=== PATIENT | female | born 1995 | race Caucasian/White ===

== ENCOUNTER 2023-06-10 09:35 | Inpatient (IN) | payer MEDICAID, SELFPAY ==
--- NOTE | 2023-06-02 17:07 | HP.PCM_ITS ---
History and Physical Date of Admission: 06/10/23 HPI: The patient is a 27 year old female presenting for pre-operative visit. She is scheduled for , for LGA, EFW near 5000 gm at [facility] on 06/08/22. Procedure discussed along with risks, benefits and complications. Other alternatives discussed for management. Consent form signed? Yes. ? ? PAST MEDICAL HISTORY No past medical history on file. ? ? PAST SURGICAL HISTORY No past surgical history on file. ? ? CURRENT MEDICATIONS No current outpatient medications on file. ? No current facility-administered medications for this visit. ? ? ALLERGIES: Patient has no known allergies. ? PERSONAL HISTORY: SOCIAL HISTORY Social History ? Tobacco Use ? Smoking status: Never ? Smokeless tobacco: Never Vaping Use ? Vaping Use: Never used Substance Use Topics ? Alcohol use: Not Currently ? Drug use: Never ? FAMILY HISTORY: FAMILY HISTORY FAMILY HISTORY Problem Relation Age of Onset ? No Known Problems Mother ? ? No Known Problems Father ? ? No Known Problems Sister ? ? No Known Problems Sister ? ? No Known Problems Maternal Grandmother ? ? No Known Problems Maternal Grandfather ? ? No Known Problems Paternal Grandmother ? ? No Known Problems Paternal Grandfather ? ? ? REVIEW OF SYMPTOMS: GENERAL: denies fevers or chills ENDOCRINOLOGY: has not been on steroids Cardiology : denies palpitations or chest pain Respiratory: denies SOB or cough Hematology: denies history of prolonged bleeding or easy bruising or VTE Allergy: Denies history of personal or family history of allergy to anesthesia ? PHYSICAL EXAMINATION: ? VITALS: Blood pressure 110/70, weight 173 lb 3.2 oz (78.6 kg), last menstrual period 09/05/2022. ? GENERAL: The patient is well nourished, well hydrated in no acute distress. , The patient is oriented to time, place, and person. NECK: Supple. No lynphadenopathy, normal thyroid, no thyromegaly. LUNGS: Clear to auscultation bilaterally. no wheezes, rhonchi or rales HEART: Regular rate and rhythm, Normal heart sounds, and No murmurs or gallops abd- soft, [id number], gravid ? IMPRESSION: Estimated Date of Delivery: 06/12/23 G1 w/ EFW approx 5000 gm ? PLAN: The risks/benefits/alternatives and personal involved for the planned c- section were reviewed with the patient. Her questions were answered to her satisfaction and she desires to proceed. Consent was signed. I reviewed with her postop instructions and expectations. ? ? I have reviewed and updated past medical and surgical history, medications and allergies
[2023-06-10] VITALS (16 sets, daily range): BP systolic 107–128; BP diastolic 61–103; PULSE 76–98; RESP 16–18; TEMP 36.2–37.1; O2SAT 16–99; BMI 29.0
[2023-06-10] MEDS: Lactated Ringers 1,000 ML 999 ML IV (10:05)
[2023-06-10 10:28] LABS: Absolute Lymphocyte Count 1.63 X10^3/uL (0.83-4.51); Absolute Neutrophil Count 6.9 X10^3/uL (2.0-7.7); Basophil# 0.02 X10^3/uL; Basophil% 0.2 % (0-1); Eosinophil# 0.07 X10^3/uL; Eosinophils% 0.7 % (0-5); Hematocrit 37.3 % (37-47); Hemoglobin 12.7 g/dL (12.0-15.0); Lymphocyte # 1.63 X10^3/ul (0.83-4.51); Mean Corpuscular Hgb 30.7 pg (27.0-32.0); Mean Corpuscular Volume 90.1 fL (81-99); Mean Platelet Vol. 9.5 fl (6.2-12.0); Monocyte% 9.4 % (0-10); NRBC Flagged by Analyzer 0 % (0-5); Neutrophil # 6.92 X10^3/uL (2.7-7.7); Neutrophil % 72.3 % (47-70); Platelet Count 239 K/mm3 (150-450); RBC Distribution Width CV 11.8 % (11.6-14.6); RBC Distribution Width SD 38.2 fl (35.1-43.9); Red Blood Count 4.14 M/mm3 (4.2-5.4); White Blood Count 9.6 K/mm3 (4.4-11.0)
[2023-06-10] MEDS: Acetaminophen 500 MG Tablet 1000 MG PO ×3 (10:59→23:50)
[2023-06-10] MEDS: Lactated Ringers 1,000 ML 150 ML IV (11:00)
[2023-06-10 11:20] LABS: HIV - WCH Non-Reactive (Nonreactive); Syphilis Antibodies Non-reactive
[2023-06-10] MEDS: Sodium Citrate/Citric Acid 30 ML UDC PO (11:53)
[2023-06-10] MEDS: Cefazolin 2 GM in 0.9% Normal Saline (100mL Bag) 100 ML IV (11:56)
--- NOTE | 2023-06-10 12:49 | EX.PCM.OBRPT ---
Assessment & Plan (1) 39 weeks gestation of : (2) LGA (large for gestational age) fetus affecting mother, antepartum: Maternal Data Information Final [facility]: 06/12/23 Gestational age: 39 5/7 Details Operative Information Date of Procedure: 06/10/23 Pre-Operative Diagnosis: LGA, high head at term, unfavorable cervix, 39 weeks Post-Operative Diagnosis: same Classification: Scheduled Procedure Type: low transverse restaurant area director #1: Sam Goddard Type of Anesthesia: Spinal Anesthesiologist: Cherelle Pompa Special Medications: duramorph Antibiotic Given: Ancef 2 grams IV x1 Drain: Mendoza to straight drain Estimated Blood Loss: 800 Fluids Replaced: 1100 Procedure Start Time: 12:18 Procedure Stop Time: 12:50 Time of Delivery: : Findings Description of Procedure: The patient was taken to the operating room. She was prepped and draped in the dorsal supine position with a leftward tilt. A Pfannenstiel skin incision was made approximately 2 cm above the symphysis pubis and carried through to underlying layer fascia with the scalpel. The fascia was incised incised in the midline and extended laterally with the Bourgeois scissors. The fascia was dissected off the rectus muscles with blunt and sharp dissection. The rectus muscles were in the midline and the peritoneum was entered bluntly. The peritoneal incision was stretched and the bladder blade was placed. The uterine incision was made in a low transverse fashion with the scalpel and extended superiorly and inferiorly with blunt dissection. The amniotic membranes were ruptured bluntly and clear amniotic fluid returned. The infant's head was brought to the incision in the flexed position and was not able to easily be delivered. The incision was extended laterally with the bandage scissors and the rectus muscles on the left were cut slightly. The vacuum was placed on the flexion point and the vacuum created 550 mmHg. I pulled with 1 pull with gentle traction and fundal massage and the head delivered without difficulty. The vacuum was removed and there were no pop offs. The remainder of the was delivered with gentle traction and fundal pressure in the standard fashion. The mouth and nares were bulb suctioned. The cord was clamped and cut as the infant was stimulated. Cord clamping was delayed. The was handed off to the waiting nursing staff. The placenta was delivered with fundal massage and gentle traction in the standard fashion. The uterus was exteriorized and cleared of all clots and debris. The cervix was dilated with a ring forcep. The uterine incision was closed with #1 Vicryl in a running locked fashion. A second layer of the same suture was used in an imbricating fashion to obtain hemostasis. The incision was examined and was found to be hemostatic. Some hemoblast was placed over the incision. The uterus was placed back into the peritoneal cavity and hemostasis was again confirmed. The rectus muscles were examined and any bleeding was Bovie cauterized. The parietal peritoneum and rectus muscles were closed en bloc with an 0 Vicryl running suture. Some Rafael was placed over the rectus muscles. The rectus fascia was examined and any bleeding was Bovie cauterized and the rectus fascia was closed with 1 Vicryl suture in a running standard fashion. The subcutaneous tissue was examining and any bleeding was Bovie cauterized. The subcutaneous tissue was reapproximated with 3-0 Vicryl suture. The skin was closed in a subcuticular fashion by the AMMONIUM NITRATE CRYSTALLIZER with me present in the labor and delivery suite. I performed the remainder of the procedure with assistance. All sponge, lap, and needle counts were correct. The patient was taken to her room for recovery in a stable condition. Presentation: Positive for Vertex Amniotic Membrane Rupture Type: Artificial Amniotic Fluid Description: Clear Placental Delivery Description: Expressed Placenta Disposition: [facility] Cord Vessel Description: 3 Vessels Cord Entanglement: None Infant A Gender: Male (LAVONNE 4085 gm) (1 minute): 9 (5 minute): 9 Complications Complications: none
[2023-06-10] MEDS: Oxytocin 15 Units/NS 250ml 15 UNITS/250 ML IV.SOLN 83 UNITS IV (13:10)
[2023-06-10] MEDS: Ketorolac 30 MG/ML Syringe IV ×2 (13:40→19:44)
--- NOTE | 2023-06-10 15:08 | CASEMGMT ---
Labor and Delivery Unit Social Work Sw consult received to provide resources for parents. Sw presented to bedside and introduced self to mother and father of baby using iPad Ukranian lining cementer. - Sw completed psychosocial assessment and assessed for any needs or concerns that parents may have. - Sw asked parents if they wanted to get connected to [facility], parents denied, but sw pointed out WIC contact information for them to utilize if they change their mind. - Parents have obtained all necessary supplies for baby, report to have some supports in place should they need anything. - Sw also provided list of [facility] resources for parents to reference if a need should present itself, parents expressed understanding. No immediate needs or concerns at this time, MOB and baby to be discharged when medically ready. Formal psychosocial assessment to be completed. Radha Montes, TRANSFER DRIVER, HOUSEHOLD APPLIANCE MECHANIC
[2023-06-10] MEDS: Lactated Ringers 1,000 ML 100 ML IV (16:25)
[2023-06-11 01:30] VITALS: BP 105/54; PULSE 80; RESP 16; TEMP 36.6; O2SAT 98
[2023-06-11] MEDS: Ketorolac 30 MG/ML Syringe IV ×2 (01:35→07:59)
[2023-06-11 04:25] VITALS: BP 98/52; PULSE 83; RESP 16; TEMP 36.5; O2SAT 98
[2023-06-11 04:56] LABS: Hematocrit 30.6 % (37-47); Hemoglobin 10.2 g/dL (12.0-15.0); Mean Corp Hgb Conc 33.3 g/dL (32-36); Mean Corpuscular Hgb 30.7 pg (27.0-32.0); Mean Corpuscular Volume 92.2 fL (81-99); Mean Platelet Vol. 9.2 fl (6.2-12.0); Platelet Count 202 K/mm3 (150-450); RBC Distribution Width CV 11.9 % (11.6-14.6); Red Blood Count 3.32 M/mm3 (4.2-5.4); White Blood Count 13.3 K/mm3 (4.4-11.0)
[2023-06-11] MEDS: Acetaminophen 500 MG Tablet 1000 MG PO ×2 (06:02→12:04)
[2023-06-11] MEDS: 0.9% Saline Lock 10 ML Syringe IV (07:59)
[2023-06-11 08:05] VITALS: BP 96/63; PULSE 68; RESP 16; TEMP 37.1; O2SAT 100
--- NOTE | 2023-06-11 11:23 | PCM.PN.OB ---
Subjective Subjective denies complaints Objective Data Objective Data Vital Signs: Vital Signs Temp Pulse Resp BP Pulse Ox O2 Del Method 98.7 F 68 16 96/63 100 Room Air 06/11/23 08:05 06/11/23 08:05 06/11/23 08:05 06/11/23 08:05 06/11/23 08:05 06/11/23 08:05 Oxygen Delivery Method Room Air Weight: 174 lb 4 oz Body Mass Index (BMI) 29.0 Intake & Output: Intake and Output for Last 24 Hours 06/09/23 06/10/23 06/11/23 23:59 23:59 23:59 Intake Total 1762.5 / 1762.5 933.33 / 933.33 Output Total 1800 / 1800 400 / 400 Balance -37.5 / -37.5 533.33 / 533.33 Lab / Micro Data 06/11/23 04:40 Labs: Laboratory Results - last 24 hr 06/10/23 10:10: Blood Type A POSITIVE, Antibody Screen NEGATIVE 06/11/23 04:40: WBC 13.3 H, RBC 3.32 L, Hgb 10.2 L, Hct 30.6 L, MCV 92.2, MCH 30.7, MCHC 33.3, RDW Std Deviation 40.0, RDW Coeff of Staci 11.9, Plt Count 202, MPV 9.2 Physical Exam Const alert, oriented x3 and no apparent distress HEENT normocephalic GI soft to palpation, non-tender and non-distended GI Narrative: fundus firm, mid & below umbilicus Incision - bandage c/d/i Extremity normal to inspection and no calf tenderness Assessment & Plan (1) care following delivery: COMMENT: POD#1 PLAN: Plan Heme - HDS, CBC reviewed ID - AF, no signs infection GI/ - no issues Possible d/c home later today per patient request
--- NOTE | 2023-06-11 11:24 | PCM.DC.SUM ---
Providers Date of Admission: 06/10/23 Primary Care Physician: No Primary Care Phys Reason For Visit: PRIMARY Diagnosis Discharge Diagnosis (1) care following delivery: Status: Acute Code(s): Z39.2 - Encounter for routine follow-up Plan Heme - HDS, CBC reviewed ID - AF, no signs infection GI/ - no issues Possible d/c home later today per patient request Medications at Discharge Home Medications vit no.95-ferrous fumarate 28 mg-folic acid 800 mcg tablet () 1 tab PO DAILY 06/10/23 acetaminophen 500 mg tablet 1,000 mg (2 x 500 mg) PO Q6H #0 tabs 06/11/23 ibuprofen 600 mg tablet 600 mg PO Q6H #0 tabs 06/11/23 oxycodone 5 mg tablet 5 mg PO Q8 PRN Abdominal Pain 7 days #21 tabs 06/11/23 Hospital Course Operations section Summary of Care Provided Minutes Spent on Discharge: 15 Weight / BMI Weight Weight: 174 lb 4 oz Body Mass Index (BMI) 29.0 ABG / Lab / Microbiology Data 06/11/23 04:40 Laboratory: Laboratory Results - last 24 hr 06/10/23 10:10: Blood Type A POSITIVE, Antibody Screen NEGATIVE 06/11/23 04:40: WBC 13.3 H, RBC 3.32 L, Hgb 10.2 L, Hct 30.6 L, MCV 92.2, MCH 30.7, MCHC 33.3, RDW Std Deviation 40.0, RDW Coeff of Staci 11.9, Plt Count 202, MPV 9.2 D/C Instructions Discharge Diet: No restrictions Discharge Activity: May Shower May resume sexual activity in: 6 weeks Weight Bearing Status: Weight bearing as tolerated Call your doctor if your incision/area has: Continuous Slow Oozing, Sudden Increased Bleeding, Increased Pain/ Swelling, Increased Redness, Foul Smelling Discharge and Swelling at the incision site Call your doctor if you observe: Fever of 101 or Higher, Coldness, Increased Pain, Change in Color, Inability to urinate, Inability to have a bowel movement, Using more than 1 pad per hour, Shortness of breath, Dizziness, Fainting spells, Chest pain, Increased palpitations (irregular heartbeat), Calf discomfort and Uncontrolled pain Suture Line Care: Avoid Pulling/Pushing and Avoid Pinching/Bending Remove Dressing in: 1 week Cleanse incision/area with: Soap & Water Please Follow Up With: Mora Ruffin MD When: Follow up in 2 and 6 weeks for visits. Meaningful Use Info Meaningful Use Diagnoses (Choose all that apply): None applicable Discharge Plan Admission Admit Date/Time: 06/10/23 09:35 Primary Reason for Your Visit: section Attending Provider: Mora Ruffin Primary Care Provider: Care Physician,Mariama Primary Discharge Orders/Prescriptions Prescriptions: New acetaminophen 500 mg Tablet 1,000 mg PO Q6H Qty: 0 0RF ibuprofen 600 mg Tablet 600 mg PO Q6H Qty: 0 0RF oxycodone 5 mg Tablet 5 mg PO Q8 PRN (Reason: Abdominal Pain) 7 Days Qty: 21 0RF Continued PNV cmb#95-ferrous fumarate-FA [] 28 mg iron- 800 mcg tablet 1 tab PO DAILY Referrals / Follow Up: Care Physician,No Primary [Primary Care Provider] - Disposition Disposition (needs filled in before D/C Order can be placed): Home, Self Care
[2023-06-11] MEDS: Senna/Docusate Sodium 1 Tablet PO (12:04)
[2023-06-11 12:10] VITALS: BP 98/61; PULSE 84; RESP 16; TEMP 37; O2SAT 98
--- NOTE | 2023-06-11 14:54 | NURSING ---
Used cotton chopper [id number] to do d/c instructions.
[2023-06-11] MEDS: Ibuprofen 600 MG Tablet PO (14:59)
--- NOTE | 2023-06-11 15:00 | NURSING ---
RN offered to help pt with . Offered to watch feed. Pt declined.
--- NOTE | 2023-06-15 15:55 | NURSING ---
Follow up phone call performed through [employer] Lan Administrator phone service. Lan Administrator ID #[id number]. Call last 8 minutes and 46 seconds, from [phone]. Pt. reports she is doing well. Asked about when to remove her dressing. Pt. advised that information should be on her discharge instructions, but most physicians recommend removing it about 5-7 days after delivery. If pt. has questions, recommended to call OBGYN office. Pt. states feeding has been going well, and that family does not have any further questions or concerns at this time. Family reports having a good stay during hospitalization, and denies any issues.
== END 2023-06-11 16:15 | disposition home or self-care (01) | DRG 540 ==
PROVIDERS: Admitting Provider Obstetrics & Gynecology; Visit Provider Obstetrics & Gynecology
PROC: 10D00Z1 Extraction of Products of Conception, Low, Open Approach (ICD-10-PCS; CPT 59514; principal; 2023-06-10 11:45)
DX: O32.4XX0 Maternal care for high head at term, not applicable or unspecified (principal); O36.63X0 Maternal care for excessive fetal growth, third trimester, not applicable or unspecified; Z37.0 Single live birth; Z3A.39 39 weeks gestation of pregnancy
CPT/HCPCS: 59025; 59050; 85025; 85027; 86703; 86780; 86850; 86900; 86901; 99221; J7120; A4216; G0378; J2405